=== PATIENT | male | born 1930 | race Caucasian/White ===

== ENCOUNTER → 2016-11-06 | Outpatient (CLI) | payer MEDICARE | END | disposition home or self-care (01) | LOC: CFH 08:37 | PROVIDERS: ATTEND Internal Medicine Cardiovascular Disease | DX: I08.0 Rheumatic disorders of both mitral and aortic valves (principal); I25.10 Atherosclerotic heart disease of native coronary artery without angina pectoris; I10 Essential (primary) hypertension; E78.5 Hyperlipidemia, unspecified; I25.2 Old myocardial infarction; Z95.5 Presence of coronary angioplasty implant and graft; Z85.828 Personal history of other malignant neoplasm of skin | CPT/HCPCS: 93306 ==

== ENCOUNTER 2017-02-05 14:58 | Inpatient (IN) | payer MEDICARE ==
[~2017-02-05] VITALS: Ht 167.6 cm; Wt 81.5 kg
[2017-02-05] MEDS ORDERED: SODIUM CHLORIDE FLUSH 10ML SYR IVF ONE ×2 (15:30→16:30)
[2017-02-05] MEDS ORDERED: SODIUM CHLORIDE 0.9% 1,000ML IVBOLUS ONE ×2 (15:30→16:30)
[2017-02-05 15:43] LABS: HEMATOCRIT 37.6 % (39.2-51.8); HEMOGLOBIN 12.7 g/dL (13.7-18.0); WHITE BLOOD COUNT 7.9 x10^3/uL (3.4-10)
[2017-02-05 15:54] LABS: BLOOD UREA NITROGEN 44 mg/dL (7-18)
[2017-02-05 15:59] LABS: ASPARTATE AMINO TRANSFERASE 170 U/L (15-37)
[2017-02-05] MEDS ORDERED: ATOR20TA9 PO (16:09)
[2017-02-05] MEDS ORDERED: METO25TA91 PO (16:09)
[2017-02-05] MEDS ORDERED: TAMS-11 PO (16:09)
[2017-02-05] MEDS ORDERED: ASPI81TA50 PO (16:09)
[2017-02-05] MEDS ORDERED: SODIUM CHLORIDE 0.9% 1,000 ML IV ONE (16:11)
[2017-02-05 16:47] LABS: IS PT STATUS REG ER OR PRE ER? YES
[2017-02-05] MEDS ORDERED: CEFTRIAXONE PMX 1GM/50ML 50 ML ONE (17:42)
[2017-02-05] MEDS ORDERED: AZITHROMYCIN 500 MG in SODIUM CHLORIDE 0.9% 250 ML IV ONE (18:00)
[2017-02-05] MEDS ORDERED: GUAIFENESIN/DM 200-20MG, 10ML UDC PO PRN (18:30)
[2017-02-05] MEDS ORDERED: hydrALAzine 20 MG/ML, 1ML IVPush PRN (18:30)
[2017-02-05] MEDS ORDERED: ONDANSETRON ODT 4 MG PO PRN (18:30)
[2017-02-05] MEDS ORDERED: DIPHENHYDRAMINE 25 MG CAPSULE PO PRN (18:30)
[2017-02-05] MEDS ORDERED: DOCUSATE 100 MG CAPSULE PO PRN (18:30)
[2017-02-05] MEDS ORDERED: CEFTRIAXONE PMX 1GM/50ML 50 ML IV ONE (19:00)
[2017-02-05] MEDS ORDERED: ACETAMINOPHEN 325 MG TABLET ONE (19:00)
[2017-02-05] MEDS: ACETAMINOPHEN 325 MG TABLET PO PRN (19:01)
[2017-02-05 19:39] VITALS: BP 131/68
[2017-02-05] MEDS: ATORVASTATIN 20 MG TABLET PO SCH (20:33)
[2017-02-05] MEDS: HEPARIN 5,000 UNITS/ML, 1ML SQ SCH (20:33)
[2017-02-05 20:34] LABS: BLOOD UREA NITROGEN 42 mg/dL (7-18)
[2017-02-05] MEDS: SODIUM CHLORIDE 0.9% 1,000 ML IV SCH (21:34)
[2017-02-06 01:33] VITALS: BP 135/62
[2017-02-06] MEDS: ACETAMINOPHEN 325 MG TABLET PO PRN (01:37)
[2017-02-06] MEDS: SODIUM CHLORIDE 0.9% 1,000 ML IV SCH ×3 (03:47→21:52)
[2017-02-06 04:53] LABS: HEMATOCRIT 34.4 % (39.2-51.8); HEMOGLOBIN 11.7 g/dL (13.7-18.0); WHITE BLOOD COUNT 6.7 x10^3/uL (3.4-10)
[2017-02-06] MEDS: HEPARIN 5,000 UNITS/ML, 1ML SQ SCH ×3 (05:39→21:52)
[2017-02-06] MEDS: CEFTRIAXONE PMX 1GM/50ML 50 ML IV SCH ×2 (05:39→23:40)
[2017-02-06 07:41] VITALS: BP 152/70
[2017-02-06] MEDS: ASPIRIN 81 MG TABLET EC PO SCH (08:35)
[2017-02-06] MEDS: METOPROLOL SUCCINATE 25 MG TAB.ER.24H PO SCH (08:35)
[2017-02-06] MEDS: TAMSULOSIN 0.4 MG CAP.ER.24H PO SCH (08:35)
[2017-02-06 14:24] VITALS: BP 147/77
[2017-02-06 18:26] LABS: BLOOD UREA NITROGEN 35 mg/dL (7-18)
[2017-02-06] MEDS: AZITHROMYCIN 500 MG in SODIUM CHLORIDE 0.9% 250 ML IV SCH (18:34)
[2017-02-06 20:31] VITALS: BP 160/80
[2017-02-06] MEDS: ATORVASTATIN 20 MG TABLET PO SCH (21:52)
[2017-02-06] MEDS: ALUMINUM/MAG/SIMETHICONE 30 ML UDC PO PRN (21:55)
[2017-02-07 02:00] VITALS: BP 134/67
[2017-02-07] MEDS: HEPARIN 5,000 UNITS/ML, 1ML SQ SCH ×3 (05:00→20:58)
[2017-02-07] MEDS: SODIUM CHLORIDE 0.9% 1,000 ML IV SCH ×3 (05:00→18:12)
[2017-02-07 07:44] VITALS: BP 148/76
[2017-02-07] MEDS: METOPROLOL SUCCINATE 25 MG TAB.ER.24H PO SCH (09:17)
[2017-02-07] MEDS: TAMSULOSIN 0.4 MG CAP.ER.24H PO SCH (09:17)
[2017-02-07] MEDS: ASPIRIN 81 MG TABLET EC PO SCH (09:18)
[2017-02-07] MEDS: CEFTRIAXONE PMX 1GM/50ML 50 ML IV SCH (11:53)
[2017-02-07 13:16] VITALS: BP 145/81
[2017-02-07] MEDS: ALUMINUM/MAG/SIMETHICONE 30 ML UDC PO PRN (16:06)
[2017-02-07 16:42] VITALS: BP 137/76
[2017-02-07] MEDS ORDERED: morphine SULFATE 10 MG/ML, 1ML ONE (16:44)
[2017-02-07] MEDS ORDERED: morphine SULFATE 10 MG/ML, 1ML IVPush ONE (17:00)
[2017-02-07 17:17] LABS: IS PT STATUS REG ER OR PRE ER? NO
[2017-02-07] MEDS: METOPROLOL 1 MG/ML, 5ML IVPush PRN (17:17)
[2017-02-07] MEDS: AZITHROMYCIN 500 MG in SODIUM CHLORIDE 0.9% 250 ML IV SCH (18:21)
[2017-02-07] MEDS ORDERED: FUROSEMIDE 40 MG/4 ML IV ONE (18:30)
[2017-02-07 18:32] LABS: BLOOD UREA NITROGEN 34 mg/dL (7-18)
[2017-02-07] MEDS ORDERED: ZOLEDRONIC ACID 3 MG in SODIUM CHLORIDE 0.9% 100 ML IVPB ONE (19:00)
[2017-02-07 20:39] VITALS: BP 112/69
[2017-02-07] MEDS: ATORVASTATIN 20 MG TABLET PO SCH (20:57)
[2017-02-08] VITALS (7 sets, daily range): BP systolic 99–161; BP diastolic 53–86
[2017-02-08] MEDS: METOPROLOL 1 MG/ML, 5ML IVPush PRN (00:52)
[2017-02-08 05:52] LABS: HEMATOCRIT 35.1 % (39.2-51.8); HEMOGLOBIN 11.9 g/dL (13.7-18.0); WHITE BLOOD COUNT 7.3 x10^3/uL (3.4-10)
[2017-02-08 05:59] LABS: ASPARTATE AMINO TRANSFERASE 72 U/L (15-37); BLOOD UREA NITROGEN 35 mg/dL (7-18)
[2017-02-08] MEDS: HEPARIN 5,000 UNITS/ML, 1ML SQ SCH (06:40)
[2017-02-08] MEDS: ALUMINUM/MAG/SIMETHICONE 30 ML UDC PO PRN (06:40)
[2017-02-08] MEDS ORDERED: DILTIAZEM 5 MG/ML, 5ML IVPush ONE (07:30)
[2017-02-08] MEDS ORDERED: DILTIAZEM 125 MG in SODIUM CHLORIDE 0.9% 100 ML IV SCH (07:30)
[2017-02-08] MEDS: TAMSULOSIN 0.4 MG CAP.ER.24H PO SCH (08:43)
[2017-02-08] MEDS: ASPIRIN 81 MG TABLET EC PO SCH (08:43)
[2017-02-08] MEDS: METOPROLOL SUCCINATE 25 MG TAB.ER.24H PO SCH (09:30)
[2017-02-08] MEDS: SODIUM CHLORIDE 0.9% 1,000 ML IV SCH ×3 (09:31→21:53)
[2017-02-08] MEDS ORDERED: AMIODARONE 150 MG in DEXTROSE 5% 100 ML IV ONE (11:30)
[2017-02-08] MEDS ORDERED: FILTER 0.22 MICRON FOR AMIODARONE IV PRN (11:30)
[2017-02-08] MEDS: AMIODARONE 900 MG in DEXTROSE 5% 482 ML IV PRN (11:42)
[2017-02-08] MEDS ORDERED: HEPARIN 25,000 UNITS/500ML PMX 500 ML IV PRN (12:30)
[2017-02-08] MEDS ORDERED: HEPARIN 5,000 UNITS/ML, 1ML IV ONE (13:00)
[2017-02-08] MEDS: HEPARIN 25,000 UNITS/500ML PMX 500 ML IV PRN (14:28)
[2017-02-08] MEDS: CEFTRIAXONE PMX 1GM/50ML 50 ML IV SCH ×2 (15:11)
[2017-02-08] MEDS: AZITHROMYCIN 500 MG in SODIUM CHLORIDE 0.9% 250 ML IV SCH ×2 (17:40→18:30)
[2017-02-08] MEDS ORDERED: SODIUM CHLORIDE 0.9% 1,000 ML IV SCH (18:03)
[2017-02-08] MEDS: HEPARIN 5,000 UNITS/ML, 1ML IV PRN (21:52)
[2017-02-08] MEDS: ATORVASTATIN 20 MG TABLET PO SCH (21:53)
[2017-02-09 02:26] VITALS: BP 154/80
[2017-02-09] MEDS: ACETAMINOPHEN 325 MG TABLET PO PRN (02:33)
[2017-02-09] MEDS: HEPARIN 5,000 UNITS/ML, 1ML IV PRN ×2 (05:33→13:53)
[2017-02-09] MEDS: SODIUM CHLORIDE 0.9% 1,000 ML IV SCH ×2 (05:34→16:03)
[2017-02-09] MEDS: ALUMINUM/MAG/SIMETHICONE 30 ML UDC PO PRN ×3 (06:37→22:25)
[2017-02-09] MEDS: TAMSULOSIN 0.4 MG CAP.ER.24H PO SCH (07:52)
[2017-02-09] MEDS: METOPROLOL SUCCINATE 25 MG TAB.ER.24H PO SCH (07:52)
[2017-02-09] MEDS: ASPIRIN 81 MG TABLET EC PO SCH (07:52)
[2017-02-09 08:00] VITALS: BP 146/83
[2017-02-09] MEDS ORDERED: CALCIUM CARBONATE 500 MG TAB.CHEW PO PRN (12:30)
[2017-02-09] MEDS ORDERED: ALUMINUM/MAG/SIMETHICONE 30 ML UDC PO PRN (12:30)
[2017-02-09 13:06] LABS: UR ALBUMIN 17.5 % (.); UR ALPHA-1-GLOBULIN 1.6 % (.); UR ALPHA-2-GLOBULIN 13.4 % (.); UR BETA GLOBULIN 54.2 % (.); UR GAMMA GLOBULIN 13.3 % (.); UR M-SPIKE % Not Observed % (Not Observed)
[2017-02-09 15:42] VITALS: BP 123/61
[2017-02-09] MEDS ORDERED: AMIODARONE 150 MG in DEXTROSE 5% 100 ML IV ONE (16:00)
[2017-02-09] MEDS: AMIODARONE 900 MG in DEXTROSE 5% 482 ML IV PRN (16:03)
[2017-02-09] MEDS ORDERED: LORazepam INTENSOL 2 MG/ML SL PRN (17:00)
[2017-02-09] MEDS: AZITHROMYCIN 500 MG in SODIUM CHLORIDE 0.9% 250 ML IV SCH (17:24)
[2017-02-09 19:33] VITALS: BP 149/71
[2017-02-09] MEDS: HEPARIN 25,000 UNITS/500ML PMX 500 ML IV PRN (22:14)
[2017-02-09] MEDS: ATORVASTATIN 20 MG TABLET PO SCH (22:25)
[2017-02-10 00:39] VITALS: BP 159/83
[2017-02-10] MEDS: SODIUM CHLORIDE 0.9% 1,000 ML IV SCH (01:52)
[2017-02-10 03:17] LABS: BLOOD UREA NITROGEN 34 mg/dL (7-18)
[2017-02-10] MEDS: HEPARIN 5,000 UNITS/ML, 1ML IV PRN (04:28)
[2017-02-10] MEDS: ALUMINUM/MAG/SIMETHICONE 30 ML UDC PO PRN (07:35)
[2017-02-10] MEDS: METOPROLOL SUCCINATE 25 MG TAB.ER.24H PO SCH (07:35)
[2017-02-10] MEDS: ASPIRIN 81 MG TABLET EC PO SCH (07:35)
[2017-02-10] MEDS: TAMSULOSIN 0.4 MG CAP.ER.24H PO SCH (07:35)
[2017-02-10] MEDS: MORPHINE SULFATE 4 MG/ML, 1ML IVPush PRN ×2 (10:28→11:53)
[2017-02-10] MEDS: AMIODARONE 200 MG TABLET PO SCH ×2 (11:00→21:00)
[2017-02-10] MEDS: LORazepam 2 MG/ML, 1ML IVPush PRN ×3 (12:46→21:53)
[2017-02-10] MEDS ORDERED: ATROPINE OPHTH SOLN 1%, 2ML SL PRN (13:30)
[2017-02-10] MEDS ORDERED: SCOPOLAMINE 1MG PATCH TD SCH (13:30)
[2017-02-10 14:24] LABS: A/G RATIO 1.3 (0.7-1.7); ALPHA-1-GLOBULIN 0.3 g/dL (0.0-0.4); BETA GLOBULIN 0.7 g/dL (0.7-1.3); GAMMA GLOBULIN 0.5 g/dL (0.4-1.8); PROTEIN TOTAL 5.4 g/dL (6.0-8.5)
== END 2017-02-11 02:15 | disposition expired | DRG 70 ==
LOC: ED 17:08 → EDIP 17:36 → 4WST 19:09 → 5SO 02-08 11:08 → 3NW 02-10 12:20
PROVIDERS: ADMIT Internal Medicine; ATTEND Family Medicine
PROC: 0T9B70Z Drainage of Bladder with Drainage Device, Via Natural or Artificial Opening (ICD-10-PCS; principal; 2017-02-05)
DX: G93.41 Metabolic encephalopathy (principal); N17.0 Acute kidney failure with tubular necrosis; J96.00 Acute respiratory failure, unspecified whether with hypoxia or hypercapnia; J15.9 Unspecified bacterial pneumonia; E87.2 Acidosis; E87.5 Hyperkalemia; I48.91 Unspecified atrial fibrillation; D64.9 Anemia, unspecified; R53.2 Functional quadriplegia; N39.0 Urinary tract infection, site not specified; Z51.5 Encounter for palliative care; E83.52 Hypercalcemia; E86.0 Dehydration; I10 Essential (primary) hypertension; E78.5 Hyperlipidemia, unspecified; M51.37 Other intervertebral disc degeneration, lumbosacral region; I12.9 Hypertensive chronic kidney disease with stage 1 through stage 4 chronic kidney disease, or unspecified chronic kidney disease; I25.10 Atherosclerotic heart disease of native coronary artery without angina pectoris; K22.70 Barrett's esophagus without dysplasia; M81.0 Age-related osteoporosis without current pathological fracture; N18.9 Chronic kidney disease, unspecified; Z79.82 Long term (current) use of aspirin; Z79.899 Other long term (current) drug therapy; Z82.3 Family history of stroke; I25.2 Old myocardial infarction; Z82.49 Family history of ischemic heart disease and other diseases of the circulatory system; Z87.891 Personal history of nicotine dependence; Z85.828 Personal history of other malignant neoplasm of skin; Z95.5 Presence of coronary angioplasty implant and graft; Z66 Do not resuscitate
CPT/HCPCS: 36415; 70450; 71010; 71250; 72072; 72110; 74176; 74230; 78582; 80048; 80053; 80329; 81001; 82140; 82306; 82330; 83605; 83735; 83880; 83970; 84100; 84155; 84156; 84165; 84166; 84439; 84443; 84484; 85025; 85520; 87040; 87086; 87324; 93005; 93306; 93970; 99285; J0456; J0696; J1644; J1940; J2270; J3489; Q0162; A9540; A9558; C8901; C8919; C9898; G0480; J0282; J2060; J7030; J7050; J7060; Q0163